=== PATIENT | female | born 1980 | race Caucasian/White ===

== ENCOUNTER 2020-03-26 13:22 | Emergency (ER) | payer MEDICAID ==
[2020-03-26] MEDS ORDERED: SODIUM CHLORIDE 0.9% 1000 ML 1,000 ML IV ONE (13:56)
[2020-03-26 14:27] LABS: Basophils % (Auto) 0.4 % (0.0-1.8); Eosinophils # (Auto) 0.1 K/mm3 (0.0-0.4); Eosinophils % (Auto) 1.1 % (0.0-4.3); Hematocrit 36.4 % (30.3-42.9); Lymphocytes # (Auto) 1.7 K/mm3 (1.2-5.4); Lymphocytes % (Auto) 19.7 % (13.4-35.0); Mean Corpuscular HGB Conc 33 % (30-34); Mean Corpuscular Volume 79 fl (79-97); Monocytes # (Auto) 0.7 K/mm3 (0.0-0.8); Platelet Count 280 K/mm3 (140-440); Red Blood Count 4.61 M/mm3 (3.65-5.03); Red Cell Distribution Width 18.7 % (13.2-15.2)
[2020-03-26 14:49] LABS: Alanine Aminotransferase 26 units/L (7-56); Albumin 4.5 g/dL (3.9-5); Blood Urea Nitrogen 13 mg/dL (7-17); Calcium 9.5 mg/dL (8.4-10.2); Hemolysis Index 0
[2020-03-26 14:50] LABS: BUN/Creatinine Ratio 19
[2020-03-26] MEDS ORDERED: POTASSIUM CHLORIDE ER 10 MEQ TAB PO ONE (15:00)
--- NOTE | 2020-03-26 15:05 | Emergency Department Report ---
ED Chest Pain HPI - General Chief Complaint: Chest Pain Stated Complaint: CHEST PAIN/MH Time Seen by Provider: 03/26/20 13:44 Source: patient, EMS Mode of arrival: Stretcher Limitations: No Limitations - History of Present Illness Initial Comments: This is a 39-year-old female presents to the emergency department via EMS from home with a complaint of some chest pain, nausea and vomiting, and some syncopal or near syncopal episodes. The patient says that she was starting a job today that will usually be something where she works from home but today she had to go into an office setting for some training. While there she says that she got very hot and dizzy, went to the bathroom, and began having some nausea with vomiting. She then called her father to come and get her and bring her back home where she continued to feel hot, began having chest pain, and thinks she may have passed out. The patient is a former smoker. 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 However the patient does admit that she used heroin and methamphetamines 2 days ago. She denies that she used any illicit drugs today and also denies any alcohol consumption. No recent travel or sick contacts at home. Severity scale (0 -10): 0 - Related Data Allergies Allergy/AdvReac Type Severity Reaction Status Date / Time latex Allergy Anaphylaxis Verified 03/26/20 14:22 morphine Allergy Anaphylaxis Verified 03/26/20 14:22 Tricyclic Compounds Allergy Anaphylaxis Verified 03/26/20 14:22 Heart Score - HEART Score History: Slightly suspicious EKG: Normal Age: < 45 Risk factors: 1-2 risk factors Troponin: < normal limit HEART Score: 1 - Critical Actions Critical Actions: 0-3 pts:0.9-1.7%risk of adverse cardiac event.Candidate for discharge ED Review of Systems ROS: Stated complaint: CHEST PAIN/MH Other details as noted in HPI ED Past Medical Hx - Past Medical History Previous Medical History?: Yes Additional medical history: thyroid - Surgical History Past Surgical History?: No - Social History Smoking Status: Current Every Day Smoker Substance Use Type: Heroin, Other ED Physical Exam - General Limitations: No Limitations - Other Other exam information: GENERAL: The patient is well-developed well-nourished. HENT: Normocephalic. Atraumatic. Patient has moist mucous membranes. EYES: Extraocular motions are intact. NECK: Supple. Trachea is midline. CHEST/LUNGS: Clear to auscultation. There is no respiratory distress noted. HEART/CARDIOVASCULAR: Regular. There is no tachycardia. There is no murmur. ABDOMEN: Abdomen is soft, nontender. Patient has normal bowel sounds. There is no abdominal distention. SKIN: Skin is warm and dry. NEURO: The patient is awake, alert, and oriented. The patient is cooperative. The patient has no focal neurologic deficits. Normal speech. Cranial nerves II through XII grossly intact. MUSCULOSKELETAL: There is no tenderness or deformity. There is no limitation range of motion. ED Course Vital Signs 03/26/20 03/26/20 03/26/20 13:38 13:44 13:46 Temperature 98.1 F Pulse Rate 97 H 89 82 Respiratory 25 H 24 22 Rate Blood Pressure 127/82 127/82 Blood Pressure [Left] O2 Sat by Pulse 94 96 99 Oximetry 03/26/20 03/26/20 03/26/20 14:00 14:07 14:16 Temperature Pulse Rate 89 81 80 Respiratory 17 18 21 Rate Blood Pressure 137/71 128/75 Blood Pressure 128/75 [Left] O2 Sat by Pulse 99 97 86 Oximetry 03/26/20 03/26/20 03/26/20 14:30 14:46 15:00 Temperature Pulse Rate 98 H 93 H 82 Respiratory Rate Blood Pressure 135/90 135/90 127/97 Blood Pressure [Left] O2 Sat by Pulse 100 92 95 Oximetry 03/26/20 03/26/20 03/26/20 15:24 15:31 15:45 Temperature Pulse Rate 83 83 89 Respiratory Rate Blood Pressure 135/90 135/90 127/96 Blood Pressure [Left] O2 Sat by Pulse 98 88 87 Oximetry 03/26/20 03/26/20 03/26/20 16:00 16:15 16:30 Temperature Pulse Rate 86 82 80 Respiratory Rate Blood Pressure 133/92 136/96 137/94 Blood Pressure [Left] O2 Sat by Pulse 93 93 94 Oximetry 03/26/20 03/26/20 03/26/20 16:45 17:00 17:15 Temperature Pulse Rate 85 83 93 H Respiratory Rate Blood Pressure 119/88 119/88 113/82 Blood Pressure [Left] O2 Sat by Pulse 97 97 Oximetry 03/26/20 03/26/20 03/26/20 17:30 17:45 18:01 Temperature Pulse Rate 78 75 90 Respiratory Rate Blood Pressure 133/96 133/96 123/101 Blood Pressure [Left] O2 Sat by Pulse 97 99 97 Oximetry 03/26/20 03/26/20 03/26/20 18:15 18:30 18:45 Temperature Pulse Rate 84 72 74 Respiratory Rate Blood Pressure 123/101 110/74 114/77 Blood Pressure [Left] O2 Sat by Pulse 97 96 97 Oximetry 03/26/20 03/26/20 03/26/20 19:00 19:15 19:35 Temperature 97.6 F Pulse Rate 74 71 84 Respiratory 18 Rate Blood Pressure 123/88 113/78 Blood Pressure 111/77 [Left] O2 Sat by Pulse 98 97 97 Oximetry - Reevaluation(s) Reevaluation #1: 03/27/20 10:25 Lab Results 03/26/20 03/26/20 03/26/20 Range/Units 14:01 14:01 14:01 WBC 8.6 (4.5-11.0) K/mm3 RBC 4.61 (3.65-5.03) M/mm3 Hgb 12.0 (10.1-14.3) gm/dl Hct 36.4 (30.3-42.9) % MCV 79 (79-97) fl MCH 26 L (28-32) pg MCHC 33 (30-34) % RDW 18.7 H (13.2-15.2) % Plt Count 280 (140-440) K/mm3 Lymph % (Auto) 19.7 (13.4-35.0) % [place] % (Auto) 8.0 H (0.0-7.3) % Eos % (Auto) 1.1 (0.0-4.3) % Baso % (Auto) 0.4 (0.0-1.8) % Lymph # 1.7 (1.2-5.4) K/mm3 [place] # 0.7 (0.0-0.8) K/mm3 Eos # 0.1 (0.0-0.4) K/mm3 Baso # 0.0 (0.0-0.1) K/mm3 Seg Neutrophils % 70.8 H (40.0-70.0) % Seg Neutrophils # 6.1 (1.8-7.7) K/mm3 D-Dimer < 135.00 (0-234) ng/mlDDU Sodium 136 L (137-145) mmol/L Potassium 3.3 L (3.6-5.0) mmol/L Chloride 99.0 (98-107) mmol/L Carbon Dioxide 20 L (22-30) mmol/L Anion Gap 20 mmol/L BUN 13 (7-17) mg/dL Creatinine 0.7 (0.6-1.2) mg/dL Estimated GFR > 60 ml/min BUN/Creatinine Ratio 19 % Glucose 93 (65-100) mg/dL Calcium 9.5 (8.4-10.2) mg/dL Total Bilirubin 0.40 (0.1-1.2) mg/dL AST 29 (5-40) units/L ALT 26 (7-56) units/L Alkaline Phosphatase 61 (35-129) units/L Total Creatine Kinase (30-135) units/L Troponin T < 0.010 (0.00-0.029) ng/mL Total Protein 7.2 (6.3-8.2) g/dL Albumin 4.5 (3.9-5) g/dL Albumin/Globulin Ratio 1.7 % TSH (0.270-4.200) mlU/mL HCG, Qual (Negative) Urine Opiates Screen Urine Methadone Screen Ur Barbiturates Screen Ur Phencyclidine Scrn Ur Amphetamines Screen U Benzodiazepines Scrn Urine Cocaine Screen U Marijuana (THC) Screen Drugs of Abuse Note Plasma/Serum Alcohol (0-0.07) % 03/26/20 03/26/20 03/26/20 Range/Units 14:01 14:01 14:01 WBC (4.5-11.0) K/mm3 RBC (3.65-5.03) M/mm3 Hgb (10.1-14.3) gm/dl Hct (30.3-42.9) % MCV (79-97) fl MCH (28-32) pg MCHC (30-34) % RDW (13.2-15.2) % Plt Count (140-440) K/mm3 Lymph % (Auto) (13.4-35.0) % [place] % (Auto) (0.0-7.3) % Eos % (Auto) (0.0-4.3) % Baso % (Auto) (0.0-1.8) % Lymph # (1.2-5.4) K/mm3 [place] # (0.0-0.8) K/mm3 Eos # (0.0-0.4) K/mm3 Baso # (0.0-0.1) K/mm3 Seg Neutrophils % (40.0-70.0) % Seg Neutrophils # (1.8-7.7) K/mm3 D-Dimer (0-234) ng/mlDDU Sodium (137-145) mmol/L Potassium (3.6-5.0) mmol/L Chloride (98-107) mmol/L Carbon Dioxide (22-30) mmol/L Anion Gap mmol/L BUN (7-17) mg/dL Creatinine (0.6-1.2) mg/dL Estimated GFR ml/min BUN/Creatinine Ratio % Glucose (65-100) mg/dL Calcium (8.4-10.2) mg/dL Total Bilirubin (0.1-1.2) mg/dL AST (5-40) units/L ALT (7-56) units/L Alkaline Phosphatase (35-129) units/L Total Creatine Kinase (30-135) units/L Troponin T (0.00-0.029) ng/mL Total Protein (6.3-8.2) g/dL Albumin (3.9-5) g/dL Albumin/Globulin Ratio % TSH 2.040 (0.270-4.200) mlU/mL HCG, Qual Negative (Negative) Urine Opiates Screen Urine Methadone Screen Ur Barbiturates Screen Ur Phencyclidine Scrn Ur Amphetamines Screen U Benzodiazepines Scrn Urine Cocaine Screen U Marijuana (THC) Screen Drugs of Abuse Note Plasma/Serum Alcohol < 0.01 (0-0.07) % 03/26/20 03/26/20 03/26/20 Range/Units 14:01 16:38 Unknown WBC (4.5-11.0) K/mm3 RBC (3.65-5.03) M/mm3 Hgb (10.1-14.3) gm/dl Hct (30.3-42.9) % MCV (79-97) fl MCH (28-32) pg MCHC (30-34) % RDW (13.2-15.2) % Plt Count (140-440) K/mm3 Lymph % (Auto) (13.4-35.0) % [place] % (Auto) (0.0-7.3) % Eos % (Auto) (0.0-4.3) % Baso % (Auto) (0.0-1.8) % Lymph # (1.2-5.4) K/mm3 [place] # (0.0-0.8) K/mm3 Eos # (0.0-0.4) K/mm3 Baso # (0.0-0.1) K/mm3 Seg Neutrophils % (40.0-70.0) % Seg Neutrophils # (1.8-7.7) K/mm3 D-Dimer (0-234) ng/mlDDU Sodium (137-145) mmol/L Potassium (3.6-5.0) mmol/L Chloride (98-107) mmol/L Carbon Dioxide (22-30) mmol/L Anion Gap mmol/L BUN (7-17) mg/dL Creatinine (0.6-1.2) mg/dL Estimated GFR ml/min BUN/Creatinine Ratio % Glucose (65-100) mg/dL Calcium (8.4-10.2) mg/dL Total Bilirubin (0.1-1.2) mg/dL AST (5-40) units/L ALT (7-56) units/L Alkaline Phosphatase (35-129) units/L Total Creatine Kinase 305 H (30-135) units/L Troponin T < 0.010 (0.00-0.029) ng/mL Total Protein (6.3-8.2) g/dL Albumin (3.9-5) g/dL Albumin/Globulin Ratio % TSH (0.270-4.200) mlU/mL HCG, Qual (Negative) Urine Opiates Screen Presumptive positive Urine Methadone Screen Presumptive positive Ur Barbiturates Screen Presumptive negative Ur Phencyclidine Scrn Presumptive negative Ur Amphetamines Screen Presumptive positive U Benzodiazepines Scrn Presumptive negative Urine Cocaine Screen Presumptive negative U Marijuana (THC) Screen Presumptive negative Drugs of Abuse Note Disclamer Plasma/Serum Alcohol (0-0.07) % NAY score - Nay Score Age > 65: (0) No Aspirin use within the Past 7 Days: (0) No 3 or more CAD Risk Factors: (0) No 2 or more Angina events in past 24 hrs: (1) Yes Known CAD with more than 50% Stenosis: (0) No Elevated Cardiac Markers: (0) No ST Deviation Greater than 0.5mm: (0) No NAY Score: 1 ED Medical Decision Making - Lab Data Result diagrams: 03/26/20 14:01 03/26/20 14:01 - EKG Data -: EKG Interpreted by Me EKG shows normal: sinus rhythm, axis, intervals (Prolonged QTC), QRS complexes, ST-T waves Rate: normal - EKG Data When compared to previous EKG there are: previous EKG unavailable Interpretation: other (Sinus rhythm at 89 bpm, normal axis, prolonged QTC. No ST elevation [place]) - Radiology Data Radiology results: image reviewed interpreted by me: Chest x-ray does not show any acute process. There are no pleural effusions, obvious pneumonia and there is no pneumothorax. No significant cardiomegaly. - Medical Decision Making This patient presents to the emergency department with a complaint of some chest pain, nausea and vomiting and a syncopal versus near syncopal episode. On examination the patient is awake, alert, oriented. She does not have any focal, motor or sensory deficits and her cranial nerves are intact. The patient admits to using methamphetamines and heroin 2 days ago, and denies using any illicit drugs today, but she has the appearance of someone who used methamphetamines or cocaine as she is in constant motion and staring/scanning around the room. Patient has been given IV fluid resuscitation and will be given a dose of Ativan to help her relax. An EKG was done that does not show any morphology consistent with ST elevation [place]. Chest x-ray does not show any pneumonia, pleural effusions, pneumothorax, focal consolidation, or any other acute process. Patient's labs have been mostly unremarkable thus far including CBC, metabolic panel, negative first troponin, and a negative d-dimer. The patient will have a second troponin drawn at 5 PM. If negative, the patient will be discharged home and her contact information sent over to [facility] for close outpatient follow-up as part of our hospitals low risk chest pain protocol. Patient is low on the heart and NAY score. Critical Care Time: No Critical care attestation.: If time is entered above; I have spent that time in minutes in the direct care of this critically ill patient, excluding procedure time. ED Disposition Clinical Impression: Near syncope Chest pain Qualifiers: Chest pain type: unspecified Qualified Code(s): R07.9 - Chest pain, unspecified Nausea & vomiting Qualifiers: Vomiting type: unspecified Vomiting Intractability: non-intractable Qualified Code(s): R11.2 - Nausea with vomiting, unspecified Disposition: DC-01 TO HOME OR SELFCARE Is pt being admited?: No Condition: Stable Instructions: Chest Pain (ED), Near Syncope (ED) Additional Instructions: Please follow-up with a primary care physician in the next few days. Please avoid any further illicit drug use. I have sent your contact information over to [facility] and someone should be contacting you shortly for close outpatient follow-up regarding your chest pain. Please return to the emergency department with any worsening of your symptoms or with any acute distress. Referrals: PRIMARY CARE, [Primary Care Provider] - 2-3 Days AKBAR GIBSON MD [Staff Physician] - 2-3 Days Time of Disposition: 16:08
--- NOTE | 2020-03-26 15:17 | XRay Report ---
CHEST 1 VIEW INDICATION: Chest pain. COMPARISON: None FINDINGS: Support devices: None. Heart: Within normal limits. Lungs/Pleura: No acute air space or interstitial disease. Additional findings: None. IMPRESSION: No acute findings. Signer Name: Arsen Connell Jr, MD Signed: 03/26/2020 3:12 PM Workstation Name: [id number]
[2020-03-26] MEDS ORDERED: LORazepam 2 MG/ML VIAL IV ONE (15:23)
[2020-03-26 18:55] LABS: Amphetamine Screen,Urine PRESUMPTIVE POSITIVE; Benzodiazepines Screen,Urine PRESUMPTIVE NEGATIVE; Cannabinoid Screen,Urine PRESUMPTIVE NEGATIVE; Cocaine Screen,Urine PRESUMPTIVE NEGATIVE; Methadone Screen,Urine PRESUMPTIVE POSITIVE; Opiate Screen,Urine PRESUMPTIVE POSITIVE
[2020-03-26 20:40] VITALS: BP 111/77
== END 2020-03-26 20:20 | disposition home or self-care (01) ==
LOC: ED 13:22
DX: R07.89 Other chest pain (principal); R11.2 Nausea with vomiting, unspecified; R55 Syncope and collapse; F17.200 Nicotine dependence, unspecified, uncomplicated; Z91.040 Latex allergy status; Z88.8 Allergy status to other drugs, medicaments and biological substances
CPT/HCPCS: 36415; 71045; 80053; 80307; 82550; 84443; 84484; 84703; 85025; 85379; 96361; 96374; 99285; J2060; J7030; 80320; G0480